=== PATIENT | female | born 1960 | race Caucasian/White ===

== ENCOUNTER 2020-09-18 12:02 | Outpatient (CLI) | payer BC, SELFPAY ==
[2020-09-18 12:31] LABS: Hematocrit 40.3 % (37.0-47.0); Hemoglobin 13.6 g/dL (12.0-15.0); Mean Corpuscular HGB Conc 33.7 g/dl (32-36); Mean Corpuscular Hemoglobin 33.3 pg (26-34); Mean Corpuscular Volume 98.5 fl (80-100); Mean Platelet Volume 10.4 fl (7.4-10.4); Platelet Count Result 237 k/mm3 (150-375); Red Blood Count 4.09 M/mm3 (4.2-5.4); Red Cell Distribution Width 12.3 % (11.5-14.5); White Blood Count 7.7 K/mm3 (4.5-10.0)
[2020-09-18 12:38] LABS: Rheumatoid Factor < 8.6 IU/ML (<12)
[2020-09-18 12:39] LABS: Alanine Aminotransferase 15 U/L (4-35); Albumin Level 4.6 g/dL (3.5-5.1); Alkaline Phosphatase 73 U/L (38-126); Anion Gap 9 mmol/L (8-16); Aspartate Amino Transferase 25 U/L (14-36); Bilirubin,Total 0.6 mg/dL (0.2-1.3); Blood Urea Nitrogen 34 mg/dL (7-17); CRP < 0.5 mg/dL (<1.0); Calcium 9.5 mg/dL (8.4-10.2); Carbon Dioxide 23 mmol/L (22-30); Chloride 109 mmol/L (98-107); Estimated Glomerular Filt Rate 35; Glucose 118 mg/dL (65-105); Sodium 141 mmol/L (137-145)
[2020-09-18 13:01] LABS: Erythrocyte Sedimentation Rate 14 mm/hr (0-20)
[2020-09-18 13:07] LABS: Thyroid Stimulating Hormone 0.807 uIU/mL (0.465-4.680)
== END 2020-09-18 12:03 | disposition home or self-care (01) ==
LOC: ANHLAB 12:04
PROVIDERS: PCP Family Medicine Adolescent Medicine; Visit Provider Family Medicine Adolescent Medicine
DX: R53.83 Other fatigue (principal); M25.50 Pain in unspecified joint
CPT/HCPCS: 36415; 80053; 84443; 85027; 85652; 86140; 86430

== ENCOUNTER 2020-10-22 13:43 | Outpatient (CLI) | payer BC, SELFPAY ==
--- NOTE | ~2020-10-22 | DEXA_ITS ---
Bone Density Report Name: Ruth Sauer Age: 60 Sex: Female Ethnicity: White Date of : 1960 Indication: postmenopausal; height loss; hysterectomy; Referring Provider: Nelia, Sirena Study: Bone densitometry was performed. Exam Date: October 22, 2020 Accession number: [id number] Bone Density: Region BMD T-score Z-score Classification AP Spine (L1-L4) 1.040 -0.1 1.4 Normal Femoral Neck (Left) 0.802 -0.4 0.9 Normal Total Hip (Left) 0.949 0.1 1.0 Normal Total Hip Bilateral Avg 0.954 0.1 1.1 Normal Femoral Neck (Right) 0.779 -0.6 0.7 Normal Total Hip (Right) 0.958 0.1 1.1 Normal World Health Organization criteria for BMD impression classify patients as: Normal (T-score at or above -1.0), Osteopenia (T-score between -1.0 and -2.5), or Osteoporosis (T-score at or below -2.5). 10-year Fracture Risk: FRAX not reported because: All T-scores for Spine Total, Hip Total, Femoral Neck at or above -1.0 Previous Exams: Region Exam Age BMD T-score BMD Change BMD Change Date g/cm2 vs Baseline vs Previous AP Spine(L1-L4) 10/22/2020 60 1.040 -0.1 -0.134(-11.4%) -0.037(-3.5%)* 08/18/2016 56 1.077 0.3 -0.096(-8.2%)# 0.000(0.0%)# 08/02/2013 53 1.077 0.3 -0.096(-8.2%)# -0.096(-8.2%)# 06/16/2010 50 1.173 1.1 Total Hip(Left) 10/22/2020 60 0.949 0.1 -0.065(-6.4%)# -0.060(-6.0%)* 08/18/2016 56 1.009 0.5 -0.005(-0.5%)# -0.031(-3.0%)# 08/02/2013 53 1.040 0.8 0.027(2.6%)# 0.027(2.6%)# 06/16/2010 50 1.014 0.6 Total Hip(Right) 10/22/2020 60 0.958 0.1 -0.078(-7.5%)# -0.050(-4.9%)* 08/18/2016 56 1.008 0.5 -0.028(-2.7%)# -0.015(-1.4%)# 08/02/2013 53 1.023 0.7 -0.013(-1.3%)# -0.013(-1.3%)# 06/16/2010 50 1.036 0.8 *Denotes significance at 95% confidence level, LSC for AP Spine = 0.022 g/cm2, LSC for Total Hip = 0.027 g/cm2 Clinical Information Provided by Patient: Smokes Has used the following medications: Vitamin D Has the following medical conditions: Hysterectomy Patient maximum height was 67 Menopause Age: 53 No regular weight bearing exercise Drinks caffeinated beverages Onset of menses at age 12 Number of children 5 Impression: The patient has normal bone mass. The patient has risk factors, including: smoking. The BMD for the AP Spine(L1-L4) decreased, changing by -3.5% since the last DXA exam. The BMD for the Total Hip(Left) decreased, changing by -6.0% since the last
--- NOTE | ~2020-10-22 | MM_ITS ---
EXAMINATION: MM screening linda BI w roshan HISTORY: Screening mammogram TECHNIQUE: Craniocaudal and mediolateral oblique 3-D tomosynthesis images were obtained and synthetic 2-D images were generated. CAD analysis was submitted and interpreted. COMPARISON: 09/08/2019, 08/31/2018, 08/25/2017 bilateral digital screening mammogram examinations BREAST PARENCHYMAL COMPOSITION: There are scattered areas of fibroglandular density. FINDINGS: There are scattered benign calcifications. There is no evidence of suspicious mass, calcifi cation, or architectural distortion to suggest malignancy in either breast. There has been no suspici ous interval change. IMPRESSION: 1. No mammographic evidence of malignancy. 2. Recommend routine screening mammography in one year. BI-RADS Category 2: Benign finding(s). Reviewed, dictated and finalized at location A. DRIVING SETTER
[2020-10-22 17:06] LABS: Vitamin D 25 Hydroxy 52.9 ng/mL
== END 2020-10-22 13:44 | disposition home or self-care (01) ==
PROVIDERS: PCP Family Medicine Adolescent Medicine; Visit Provider Nurse Practitioner
DX: Z12.31 Encounter for screening mammogram for malignant neoplasm of breast (principal); Z13.820 Encounter for screening for osteoporosis; E55.9 Vitamin D deficiency, unspecified
CPT/HCPCS: 36415; 77063; 77067; 77080; 82306

== ENCOUNTER 2021-07-01 12:56 | Outpatient (CLI) | payer BC, SELFPAY ==
[2021-07-01 14:03] LABS: Hematocrit 41.1 % (37.0-47.0); Hemoglobin 13.3 g/dL (12.0-15.0); Mean Corpuscular HGB Conc 32.4 g/dl (32-36); Mean Corpuscular Hemoglobin 31.9 pg (26-34); Mean Corpuscular Volume 98.6 fl (80-100); Mean Platelet Volume 10.5 fl (7.4-10.4); Platelet Count Result 255 k/mm3 (150-375); Red Blood Count 4.17 M/mm3 (4.2-5.4); Red Cell Distribution Width 12.1 % (11.5-14.5)
[2021-07-01 14:26] LABS: Alanine Aminotransferase 17 U/L (4-35); Albumin Level 4.7 g/dL (3.5-5.1); Alkaline Phosphatase 63 U/L (38-126); Anion Gap 8 mmol/L (8-16); Aspartate Amino Transferase 25 U/L (14-36); Bilirubin,Total 0.5 mg/dL (0.2-1.3); Blood Urea Nitrogen 35 mg/dL (7-17); Calcium 9.8 mg/dL (8.4-10.2); Carbon Dioxide 22 mmol/L (22-30); Chloride 112 mmol/L (98-107); Estimated Glomerular Filt Rate 31; Glucose 100 mg/dL (65-110); Potassium 4.9 mmol/L (3.4-5.0); Sodium 142 mmol/L (137-145)
== END 2021-07-01 12:57 | disposition home or self-care (01) ==
LOC: ANHLAB 13:00
PROVIDERS: PCP Family Medicine Adolescent Medicine; Visit Provider Family Medicine Adolescent Medicine
DX: R53.83 Other fatigue (principal)
CPT/HCPCS: 36415; 80053; 84443; 85027

== ENCOUNTER → 2021-11-05 03:42 | Outpatient (CLI) | payer BC, SELFPAY ==
[2021-11-08 20:42] LABS: SARS-CoV-2 RNA PCR Negative
== END ==
PROVIDERS: PCP Family Medicine Adolescent Medicine; Visit Provider Family Medicine Adolescent Medicine
DX: R53.83 Other fatigue (principal); R51.9 Headache, unspecified; Z20.822 Contact with and (suspected) exposure to COVID-19
CPT/HCPCS: C9803; U0003; U0005

== ENCOUNTER 2021-12-02 10:11 | Outpatient (CLI) | payer OTHER, SELFPAY ==
--- NOTE | ~2021-12-02 | MM_ITS ---
EXAMINATION: MM screening linda BI w roshan HISTORY: Screening TECHNIQUE: Craniocaudal and mediolateral oblique 3-D tomosynthesis images were obtained and synthetic 2-D images were generated. CAD analysis was submitted and interpreted. COMPARISON: Comparison to multiple prior studies sequentially, with oldest reviewed study dated 08/17. BREAST PARENCHYMAL COMPOSITION: The breasts are heterogenously dense, which may obscure small masses FINDINGS: Stable benign-appearing bilateral breast calcifications. There is no evidence of suspicious mass, calcification, or architectural distortion to suggest malignancy in either breast. There has b een no suspicious interval change. IMPRESSION: 1. No mammographic evidence of malignancy. 2. Recommend routine screening mammography in one year. BI-RADS Category 1: Negative Reviewed, dictated and finalized at location A. NESS SOLUTIONS ARCHITECT
[2021-12-02 11:58] LABS: Vitamin D 25 Hydroxy 47.9 ng/mL
== END 2021-12-02 10:12 | disposition home or self-care (01) ==
PROVIDERS: PCP Family Medicine Adolescent Medicine; Visit Provider Nurse Practitioner
DX: Z12.31 Encounter for screening mammogram for malignant neoplasm of breast (principal); E55.9 Vitamin D deficiency, unspecified
CPT/HCPCS: 36415; 77063; 77067; 82306

== ENCOUNTER 2022-05-14 09:05 | Emergency (ER) | payer OTHER, SELFPAY ==
--- NOTE | ~2022-05-14 | XR_ITS ---
EXAMINATION: XR knee RT min 4V DATE: 05/14/2022 09:38 INDICATION: Right knee pain TECHNIQUE: Four views of the right knee were obtained. COMPARISON: None. FINDINGS: Alignment is normal. No fracture or osteochondral lesion. There is mild tricompartmental os teoarthritis characterized by tiny marginal osteophytes. There is a small joint effusion. Soft tissue s are unremarkable. IMPRESSION: 1. Small knee joint effusion. Reviewed, dictated and finalized at location A.
[2022-05-14 09:07] VITALS: BP 180/97; PULSE 92; RESP 16; TEMP 36.4; O2SAT 99
--- NOTE | 2022-05-14 09:18 | ED.LOWEXIN ---
HPI - Extremity Injury (Lower) General Chief Complaint: Extremity Injury, Lower <Mariposa Gardner PA-C - Last Filed: 05/14/22 17:39> Stated Complaint: right knee injury <SAM Villalta Last Filed: 05/14/22 17:39> Time Seen by Provider: 05/14/22 09:12 <Mariposa Gardner PA-C - Last Filed: 05/14/22 17:39> Source: patient <SAM Villalta Last Filed: 05/14/22 17:39> Mode of arrival: ambulatory <SAM Villalta Last Filed: 05/14/22 17:39> Limitations: no limitations <SAM Villalta Last Filed: 05/14/22 17:39> History of Present Illness HPI Narrative: Patient is a 62-year-old female who presents the ED with report of right knee pain. Patient reports she stepped up her stairs last night with her right leg and felt as though her right knee hyperextended and bent backwards. She did not fall. No HI/LOC. She has had persistent pain in her posterior and anterior lateral right knee since then. Worse with flexion of right knee. She has a history of a right patellar dislocation several years ago, but denies any other knee problems. She took Tylenol last night for pain without relief. She has not taken anything for pain today. She has been able to ambulate, but has difficulty with this. Denies any numbness, tingling, weakness, fever, chills, redness or warmth around the knee joint. <Mariposa Gardner PA-C - Last Filed: 05/14/22 17:39> Related Data Home Medications: Home Medications Medication Instructions Recorded Confirmed oxybutynin chloride 5 mg tablet 1 tablet PO HS 05/14/22 05/14/22 <SAM Villalta Last Filed: 05/14/22 17:39> Allergies/Adverse Reactions: Allergies Allergy/AdvReac Type Severity Reaction Status Date / Time No Known Allergies Allergy Unverified 12/06/18 09:36 <SAM Villalta Last Filed: 05/14/22 17:39> Review of Systems Review of Systems: CONSTITUTIONAL: Denies fever, chills. SKIN: Denies redness/warmth to R knee. MUSCULOSKELETAL: Reports pain to posterior and lateral right knee. Denies back pain. NEUROLOGIC: Denies HI, LOC, tingling, numbness, or weakness. <Mariposa Gardner PA-C - Last Filed: 05/14/22 17:39> All systems reviewed & are unremarkable except as noted in HPI and below <Mariposa Gardner PA-C - Last Filed: 05/14/22 17:39> PMFSH Past Medical History Medical History: Medical History (Updated 05/14/22 @ 10:39 by Mariposa Gardner PA-C) GERD (gastroesophageal reflux disease) Hypertension <Mariposa Gardner PA-C - Last Filed: 05/14/22 17:39> Surgical History Surgical History: Surgical History (Updated 05/14/22 @ 09:47 by Mariposa Gardner PA-C) History of hysterectomy <Mariposa Gardner PA-C - Last Filed: 05/14/22 17:39> Family History Family History: Family History (Updated 02/24/17 @ 23:56 by DOCTOR UNKNOWN) Sibling Hypertension Family history of elevated blood lipids Father Family history of chronic obstructive pulmonary disease, Onset Age: 78 Patient's father is <Mariposa Gardner PA-C - Last Filed: 05/14/22 17:39> Social History Social History: Social History (Updated 05/14/22 @ 09:47 by Mariposa Gardner PA-C) Smoking status: Current every day smoker Alcohol intake: current <Mariposa Gardner PA-C - Last Filed: 05/14/22 17:39> Exam Narrative: GENERAL: Well appearing, well-nourished, non-toxic, in no acute distress. HEAD: Normocephalic, atraumatic. RESPIRATORY: Airway patent, respirations nonlabored. CARDIOVASCULAR: Regular rate and rhythm without murmurs, rubs, or gallops. Pedal pulses 2+ and equal bilaterally. MUSCULOSKELETAL: Moves all extremities. Strength intact without gross deformities. Swelling and TTP to anterior superior lateral R knee joint space. Significant TTP in R popliteal space. No bruising noted to anterior or posterior R knee. No palpable cysts in popliteal region. No calf tenderness. No warmth or erythema to R knee joint.
--- NOTE | 2022-05-14 09:18 | PC.NURSE ---
Xray at bedside
[2022-05-14] MEDS: KETOROLAC (*BKC) 60 MG/2 ML VIAL IM (09:49)
[2022-05-14 10:47] VITALS: PULSE 78; RESP 18; O2SAT 98
== END 2022-05-14 10:48 | disposition home or self-care (01) ==
PROVIDERS: Emergency Provider Emergency Medicine; PCP Family Medicine Adolescent Medicine
DX: S83.91XA Sprain of unspecified site of right knee, initial encounter (principal); I10 Essential (primary) hypertension; K21.9 Gastro-esophageal reflux disease without esophagitis; F17.200 Nicotine dependence, unspecified, uncomplicated; X50.9XXA Other and unspecified overexertion or strenuous movements or postures, initial encounter
CPT/HCPCS: 73564; 96372; 99283; J1885

== ENCOUNTER 2022-05-19 09:17 | Outpatient (CLI) | payer OTHER, SELFPAY ==
[2022-05-19 10:11] LABS: Basophils Absolute Auto 0.1 K/mm3 (0.0-0.1); Basophils Percent Auto 0.8 % (0.2-1.2); Eosinophils Absolute Auto 0.1 K/mm3 (0-0.3); Eosinophils Percent Auto 0.7 % (0-4.4); Hemoglobin 12.8 g/dL (12.0-15.0); Immature Granulocyte Absolute 0.02 K/mm3 (0.00-0.031); Immature Granulocyte Percent A 0.3 % (0-0.5); Lymphocytes Absolute Auto 1.57 K/mm3 (0.9-3.2); Lymphocytes Percent Auto 22.1 % (18.3-44.2); Mean Corpuscular HGB Conc 32.8 g/dl (32-36); Mean Corpuscular Hemoglobin 32.6 pg (26-34); Mean Corpuscular Volume 99.2 fl (80-100); Mean Platelet Volume 10.6 fl (7.4-10.4); Monocytes Absolute Auto 0.4 K/mm3 (0.1-0.6); Monocytes Percent Auto 4.9 % (2.6-8.5); Neutrophils Absolute Auto 5.1 K/mm3 (1.3-6.7); Neutrophils Percent Auto 71.2 % (45.5-73.1); Platelet Count Result 302 k/mm3 (150-375); Red Blood Count 3.93 M/mm3 (4.2-5.4); Red Cell Distribution Width 13.1 % (11.5-14.5); White Blood Count 7.1 K/mm3 (4.5-10.0)
[2022-05-19 10:32] LABS: CRP < 0.5 mg/dL (<1.0); Uric Acid 9.1 mg/dL (2.5-7.5)
[2022-05-19 10:35] LABS: Rheumatoid Factor < 8.6 IU/ML (<12)
[2022-05-19 11:06] LABS: Erythrocyte Sedimentation Rate 16 mm/hr (0-20)
== END 2022-05-19 09:18 | disposition home or self-care (01) ==
LOC: ANHLAB 09:19
PROVIDERS: PCP Family Medicine Adolescent Medicine; Visit Provider Orthopaedic Surgery
DX: M25.561 Pain in right knee (principal)
CPT/HCPCS: 36415; 84550; 85025; 85652; 86038; 86140; 86430

== ENCOUNTER 2022-05-30 12:39 | Outpatient (CLI) | payer OTHER, SELFPAY ==
--- NOTE | ~2022-05-30 | US_ITS ---
EXAMINATION: US knee asp inj w image RT DATE: 05/30/2022 13:46 INDICATION: Right knee pain. TECHNIQUE: The procedure including the risks, benefits, and alternatives was discussed with the patie nt. Risks discussed included bleeding and infection. The patient understood the risks and agreed to p roceed. The skin overlying the right knee was prepped and draped in usual sterile fashion. Anestheti c was administered with 1% lidocaine subcutaneously. An 18 gauge needle was inserted into the knee j oint under continuous sonographic guidance. Fluid was aspirated. The entry site was cleaned and dress ed. There were no immediate complications. FINDINGS: Ultrasound images demonstrate the needle in the right knee joint effusion. IMPRESSION: 1. Ultrasound-guided right knee joint aspiration yielding 15 mL of clear, blane-colored fluid. Reviewed, dictated and finalized at location A. IMPRESSION: 1. Ultrasound-guided right knee joint aspiration yielding 15 mL of clear, blane -colored fluid.
[2022-05-30 15:11] LABS: Crystals Synovial Fluid None Seen (None Seen)
[2022-05-30 15:29] LABS: Appearance Synovial Fluid Clear (Clear); Color Synovial Fluid Yellow (Colorless); Source Synovial Fluid Synovial fluid
[2022-05-30 15:30] LABS: Lymphocytes Synovial Fluid 6 %; Macrophages Synovial Fluid 88 %; Monocytes Synovial Fluid 2 %; Neutrophils Synovial Fluid 4 % (0-25)
== END 2022-05-30 12:40 | disposition home or self-care (01) ==
PROVIDERS: PCP Family Medicine Adolescent Medicine; Visit Provider Nurse Practitioner
DX: M25.461 Effusion, right knee (principal)
CPT/HCPCS: 20611; 87070; 87075; 87205; 89051; 89060

== ENCOUNTER → 2022-06-06 08:18 | Outpatient (CLI) | payer OTHER, SELFPAY ==
--- NOTE | ~2022-06-06 | MR_ITS ---
EXAMINATION: MR knee RT wo con DATE: 06/06/2022 09:00 INDICATION: Right knee pain TECHNIQUE: Magnetic resonance imaging (MRI) of the right knee was performed without intravenous contr ast. Sequences included coronal PD-weighted FSE, coronal PD-weighted FS FSE, sagittal T2-weighted FS E, sagittal PD-weighted FS FSE and axial PD weighted fat saturated FSE. COMPARISON: None. FINDINGS: Medial compartment: Medial extrusion of the medial meniscal body with radial tear near the posterior root. Scattered naomi dral ulceration along the anterior to posterior weightbearing medial femoral condyle, in places parti ally full/near full-thickness with underlying subarticular edema-like signal change at the anterior w eightbearing medial femoral condyle. There appears to be some deep chondral delamination with linear increased signal at or near the bone chondral interface at the posterior weightbearing medial femoral condyle. Additional partial thickness chondral ulceration at the medial tibial plateau with anterome dial predominance where there is additional small amount of subarticular edema-like signal change robyn ng the medial rim of the medial tibial plateau. Lateral compartment: Lateral meniscus is normal. Small region of deep chondral fissuring without degenerative subchondral changes at the anterior to central weightbearing lateral femoral condyle. Normal cartilage along the lateral tibial plateau. Patellofemoral compartment: Deep chondral ulceration without degenerative subchondral changes at the lateral aspect of the medial patellar facet and apical ridge. Deep chondral ulceration with mild underlying cortical irregularity and minimal edema-like signal change at the inferior aspect of the medial trochlea. Additional shall ow chondral ulceration at the superomedial aspect of the lateral trochlea. Ligaments and tendons: Anterior and posterior cruciate ligaments are normal. The medial collateral ligament and fibular yvette ateral ligament complex are normal. The extensor mechanism is normal. The visualized medial and later al hamstring tendons as well as the iliotibial band are normal. Fluid: Small joint effusion at the suprapatellar pouch of the right knee. No loose osteochondral bodies iden tified. Osseous/other: Normal marrow signal separate previous noted small regions of subarticular edema-like signal change. No fracture or pathologic marrow replacing process. Mild fatty atrophy of the distal semimembranosus muscle belly. IMPRESSION: 1. Radial tear near the posterior root of the medial meniscus. 2. Mild tricompartmental osteoarthritis with regions of high-grade chondromalacia in the medial and p atellofemoral compartment and moderate grade chondromalacia in the lateral compartment. Reviewed, dictated and finalized at location A. IMPRESSION: 1. Radial tear near the posterior root of the medial meniscus. 2. Mild tricompartmental osteoarthritis with regions of high-grade chondromalac ia in the medial and patellofemoral compartment and moderate grade chondromalac ia in the lateral compartment.
== END ==
PROVIDERS: PCP Family Medicine Adolescent Medicine; Visit Provider Nurse Practitioner
DX: M25.561 Pain in right knee (principal); S83.241A Other tear of medial meniscus, current injury, right knee, initial encounter; M17.11 Unilateral primary osteoarthritis, right knee; M94.261 Chondromalacia, right knee
CPT/HCPCS: 73721

== ENCOUNTER 2022-09-16 12:36 | Outpatient (CLI) | payer OTHER, SELFPAY ==
[2022-09-16 14:00] LABS: Thyroid Stimulating Hormone 0.247 uIU/mL (0.465-4.680)
[2022-09-16 15:39] LABS: Free T4 Free Thyroxine 0.99 ng/mL (0.78-2.19); Vitamin D 25 Hydroxy 37.4 ng/mL
[2022-09-21 05:05] LABS: Testosterone Free 1.8 pg/mL (0.2-5.0)
== END 2022-09-16 12:37 | disposition home or self-care (01) ==
LOC: ANHLAB 12:39
PROVIDERS: PCP Family Medicine Adolescent Medicine; Visit Provider Nurse Practitioner
DX: E55.9 Vitamin D deficiency, unspecified (principal); L64.9 Androgenic alopecia, unspecified
CPT/HCPCS: 36415; 82306; 82607; 84402; 84439; 84443

== ENCOUNTER 2022-11-18 13:16 | Outpatient (CLI) | payer OTHER, SELFPAY ==
[2022-11-18 13:58] LABS: Anion Gap 11 mmol/L (8-16); Blood Urea Nitrogen 36 mg/dL (7-17); Calcium 9.5 mg/dL (8.4-10.2); Carbon Dioxide 20 mmol/L (22-30); Chloride 110 mmol/L (98-107); Estimated Glomerular Filt Rate 25; Glucose 130 mg/dL (65-110); Potassium 4.7 mmol/L (3.4-5.0); Sodium 141 mmol/L (137-145)
== END 2022-11-18 13:17 | disposition home or self-care (01) ==
LOC: ANHLAB 13:17
PROVIDERS: PCP Family Medicine Adolescent Medicine; Visit Provider Family Medicine Adolescent Medicine
DX: I10 Essential (primary) hypertension (principal)
CPT/HCPCS: 36415; 80048

== ENCOUNTER 2022-12-22 09:53 | Outpatient (CLI) | payer OTHER, SELFPAY ==
[2022-12-22 10:46] LABS: Chloride 113 mmol/L (98-107)
[2022-12-22 10:54] LABS: Complement C3 100 mg/dL (88-165)
[2022-12-22 10:59] LABS: Albumin Level 4.4 g/dL (3.5-5.1); Anion Gap 8 mmol/L (8-16); Blood Urea Nitrogen 43 mg/dL (7-17); Calcium 9.4 mg/dL (8.4-10.2); Carbon Dioxide 20 mmol/L (22-30); Estimated Glomerular Filt Rate 24; Glucose 127 mg/dL (65-110); Phosphorus 4.3 mg/dL (2.5-4.5); Potassium 5.4 mmol/L (3.4-5.0); Sodium 141 mmol/L (137-145)
[2022-12-22 12:04] LABS: Creatinine Urine 202.2 mg/dL; Total Protein Urine Random 9 mg/dL; Ur Ttl Prot Creatinine Ratio 0.04 mg/mg (0-0.20)
[2022-12-22 12:21] LABS: Eosinophil Urine Rare % (None Seen)
[2022-12-24 20:12] LABS: Albumin 4.4 g/dL (3.8-4.8); Alpha 1 Globulin 0.3 g/dL (0.2-0.3); Alpha 2 Globulin 0.8 g/dL (0.5-0.9); Beta 1 Globulin 0.5 g/dL (0.4-0.6); Gamma Globulin 0.8 g/dL (0.8-1.7); Protein, Total 7.1 g/dL (6.1-8.1)
[2022-12-26 11:29] LABS: Anti Glomerular Basement Memb <1.0 AI (<1.0)
[2022-12-27 21:29] LABS: Creatinine, Random Urine 174 mg/dL (20-275); Total Protein/Creatinine Ratio 138 mg/g creat (24-184)
[2022-12-29 02:08] LABS: ANCA Screen Negative (Negative)
== END 2022-12-22 09:54 | disposition home or self-care (01) ==
PROVIDERS: PCP Family Medicine Adolescent Medicine; Visit Provider Internal Medicine Nephrology
DX: N18.4 Chronic kidney disease, stage 4 (severe) (principal)
CPT/HCPCS: 36415; 80069; 82570; 83520; 84155; 84156; 84165; 84166; 85999; 86036; 86038; 86160; 86225

== ENCOUNTER 2022-12-30 13:07 | Outpatient (CLI) | payer OTHER, SELFPAY ==
--- NOTE | ~2022-12-30 | US_ITS ---
EXAMINATION: US renal BI DATE: 12/30/2022 13:50 INDICATION: Chronic kidney disease, stage IV. TECHNIQUE: Multiple ultrasound grayscale images of the kidneys were obtained. COMPARISON: None. FINDINGS: The right kidney measures 8.5 x 3.5 x 3.1 cm. The left kidney measures 8.5 x 5.7 x 3.6 cm. The kidney s demonstrate normal parenchymal echogenicity. There is no hydronephrosis. The bladder is normal. IMPRESSION: 1. Mild atrophy of the kidneys. No hydronephrosis. Reviewed, dictated and finalized at location A. RIOR DESIGN PROFESSOR
== END 2022-12-30 13:08 | disposition home or self-care (01) ==
PROVIDERS: PCP Family Medicine Adolescent Medicine; Visit Provider Internal Medicine Nephrology
DX: N18.4 Chronic kidney disease, stage 4 (severe) (principal); N26.1 Atrophy of kidney (terminal)
CPT/HCPCS: 76775

== ENCOUNTER 2023-02-02 14:30 | Outpatient (CLI) | payer OTHER, SELFPAY ==
--- NOTE | ~2023-02-02 | MM_ITS ---
EXAMINATION: MM screening linda BI w roshan HISTORY: Screening mammogram TECHNIQUE: Craniocaudal and mediolateral oblique 3-D tomosynthesis images were obtained and synthetic 2-D images were generated. CAD analysis was submitted and interpreted. COMPARISON: 12/02/2021, 10/22/2020, 09/08/2019 bilateral screening mammogram examinations BREAST PARENCHYMAL COMPOSITION: There are scattered areas of fibroglandular density. FINDINGS: There is no evidence of suspicious mass, calcification, or architectural distortion to sugg est malignancy in either breast. There has been no suspicious interval change. IMPRESSION: 1. No mammographic evidence of malignancy. 2. Recommend routine screening mammography in one year. BI-RADS Category 1: Negative Reviewed, dictated and finalized at location A.
== END 2023-02-02 14:31 | disposition home or self-care (01) ==
PROVIDERS: PCP Family Medicine Adolescent Medicine; Visit Provider Nurse Practitioner
DX: Z12.31 Encounter for screening mammogram for malignant neoplasm of breast (principal)
CPT/HCPCS: 77063; 77067

== ENCOUNTER 2023-06-02 14:37 | Outpatient (CLI) | payer OTHER, SELFPAY ==
[2023-06-02 13:13] LABS: Thyroid Stimulating Hormone 0.661 uIU/mL (0.465-4.680)
[2023-06-02 13:47] LABS: Free T4 Free Thyroxine 1.19 ng/mL (0.78-2.19); Vitamin D 25 Hydroxy 52.4 ng/mL
== END 2023-06-02 14:38 | disposition home or self-care (01) ==
PROVIDERS: PCP Family Medicine Adolescent Medicine; Referring Provider Nurse Practitioner Family; Visit Provider Obstetrics & Gynecology Gynecology
DX: E05.90 Thyrotoxicosis, unspecified without thyrotoxic crisis or storm (principal); E53.8 Deficiency of other specified B group vitamins; E55.9 Vitamin D deficiency, unspecified; R19.7 Diarrhea, unspecified
CPT/HCPCS: 36415; 82306; 82607; 84439; 84443; 87045; 87177; 87209; 87269; 87427

== ENCOUNTER 2023-06-15 08:58 | Outpatient (CLI) | payer OTHER, SELFPAY ==
[2023-06-15 09:55] LABS: Basophils Absolute Auto 0.1 K/mm3 (0.0-0.1); Basophils Percent Auto 0.7 % (0.2-1.2); Eosinophils Absolute Auto 0.1 K/mm3 (0-0.3); Hematocrit 38.2 % (37.0-47.0); Hemoglobin 12.3 g/dL (12.0-15.0); Immature Granulocyte Absolute 0.02 K/mm3 (0.00-0.031); Immature Granulocyte Percent A 0.3 % (0-0.5); Lymphocytes Absolute Auto 1.74 K/mm3 (0.9-3.2); Lymphocytes Percent Auto 24.4 % (18.3-44.2); Mean Corpuscular HGB Conc 32.2 g/dl (32-36); Mean Corpuscular Hemoglobin 32.7 pg (26-34); Mean Corpuscular Volume 101.6 fl (80-100); Mean Platelet Volume 10.5 fl (7.4-10.4); Monocytes Absolute Auto 0.5 K/mm3 (0.1-0.6); Monocytes Percent Auto 7.4 % (2.6-8.5); Neutrophils Absolute Auto 4.7 K/mm3 (1.3-6.7); Neutrophils Percent Auto 66.2 % (45.5-73.1); Platelet Count Result 224 k/mm3 (150-375); Red Blood Count 3.76 M/mm3 (4.2-5.4); Red Cell Distribution Width 12.8 % (11.5-14.5); White Blood Count 7.1 K/mm3 (4.5-10.0)
[2023-06-15 10:17] LABS: Alanine Aminotransferase 15 U/L (6-35); Albumin Level 4.4 g/dL (3.5-5.1); Alkaline Phosphatase 72 U/L (38-126); Anion Gap 9 mmol/L (8-16); Aspartate Amino Transferase 21 U/L (14-36); Bilirubin,Total 0.7 mg/dL (0.2-1.3); Blood Urea Nitrogen 27 mg/dL (7-17); Calcium 9.4 mg/dL (8.4-10.2); Carbon Dioxide 21 mmol/L (22-30); Chloride 109 mmol/L (98-107); Estimated Glomerular Filt Rate 28; Glucose 102 mg/dL (65-110); Potassium 4.4 mmol/L (3.4-5.0); Sodium 139 mmol/L (137-145)
== END 2023-06-15 08:59 | disposition home or self-care (01) ==
PROVIDERS: PCP Family Medicine Adolescent Medicine; Visit Provider Nurse Practitioner Family
DX: R19.7 Diarrhea, unspecified (principal)
CPT/HCPCS: 36415; 80053; 84443; 85025

== ENCOUNTER 2023-07-06 14:16 | Outpatient (CLI) | payer OTHER, SELFPAY ==
[2023-07-06 14:47] LABS: Albumin Level 4.4 g/dL (3.5-5.1); Anion Gap 12 mmol/L (8-16); Blood Urea Nitrogen 42 mg/dL (7-17); Calcium 9.4 mg/dL (8.4-10.2); Carbon Dioxide 17 mmol/L (22-30); Chloride 111 mmol/L (98-107); Estimated Glomerular Filt Rate 25; Glucose 119 mg/dL (65-110); Phosphorus 3.8 mg/dL (2.5-4.5); Potassium 4.6 mmol/L (3.4-5.0); Sodium 140 mmol/L (137-145)
[2023-07-06 17:57] LABS: Parathyroid Intact 121.9 pg/mL (7.5-53.5)
[2023-07-06 18:01] LABS: Vitamin D 25 Hydroxy 57.3 ng/mL
[2023-07-06 18:48] LABS: Creatinine Urine 278.7 mg/dL
[2023-07-06 18:53] LABS: Total Protein Urine Random < 5 mg/dL
[2023-07-06 18:54] LABS: Ur Ttl Prot Creatinine Ratio < 0.02 mg/mg (0-0.20)
== END 2023-07-06 14:17 | disposition home or self-care (01) ==
LOC: ANHLAB 14:17
PROVIDERS: PCP Family Medicine Adolescent Medicine; Visit Provider Internal Medicine Nephrology
DX: N18.4 Chronic kidney disease, stage 4 (severe) (principal); E11.22 Type 2 diabetes mellitus with diabetic chronic kidney disease; I12.9 Hypertensive chronic kidney disease with stage 1 through stage 4 chronic kidney disease, or unspecified chronic kidney disease; N25.81 Secondary hyperparathyroidism of renal origin; E55.9 Vitamin D deficiency, unspecified
CPT/HCPCS: 36415; 80069; 82306; 82570; 83970; 84156

== ENCOUNTER 2023-07-27 11:03 | Outpatient (CLI) | payer OTHER, SELFPAY ==
[2023-07-31 02:09] LABS: Immunoglobulin A 262 mg/dL (70-320); TTG IGA AB <1.0 U/mL (<15.0)
== END 2023-07-27 11:04 | disposition home or self-care (01) ==
LOC: ANHLAB 11:04
PROVIDERS: PCP Family Medicine Adolescent Medicine; Visit Provider Nurse Practitioner Family
DX: R19.7 Diarrhea, unspecified (principal)
CPT/HCPCS: 36415; 82784; 86364

== ENCOUNTER 2023-09-01 01:13 | Day surgery (SDC) | payer OTHER, SELFPAY ==
[2023-08-24 09:31] VITALS: BMI 27.8
[2023-09-01 08:57] VITALS: BMI 28.4
[2023-09-01 08:59] VITALS: BP 194/90; PULSE 82; RESP 20; TEMP 35.8; O2SAT 100
[2023-09-01] MEDS: LACTATED RINGERS 1,000 ML 150 ML IV CONT (09:07)
--- NOTE | 2023-09-01 09:49 | WPDANESEPPF ---
Anes - Initial Pre Proc Eval Procedure: Operation Date: 09/01/23 10:00 Proposed Procedures p Colonoscopy - Jone Kearney MD Date/Time: 09/01/23 09:49 Surgeon: Jone Kearney MD Pre Op Diagnosis: diarrhea Patient Data Age: 63 Gender: F Height: 1.68 m Weight: 79.9 kg Last Vital Signs Temp 96.4 F L 09/01/23 08:59 Pulse 82 09/01/23 08:59 Resp 20 09/01/23 08:59 BP 194/90 H 09/01/23 08:59 Pulse Ox 100 09/01/23 08:59 O2 Del Method Room Air 09/01/23 08:59 Allergies Allergy/AdvReac Type Severity Reaction Status Date / Time cat dander Allergy Unknown Verified 09/01/23 08:56 Home Medications Medication Instructions Recorded Confirmed Type pantoprazole 40 mg tablet,delayed 40 mg PO QAM #90 tabs 10/24/22 09/01/23 Rx release hydrochlorothiazide 12.5 mg tablet 12.5 mg PO DAILY 07/13/23 09/01/23 History lisinopril 30 mg tablet 30 mg PO DAILY #90 tabs 07/13/23 09/01/23 Rx dicyclomine 20 mg tablet 20 mg PO QID #30 tabs 07/27/23 09/01/23 Rx Patient hx anesthesia problems: none Family hx anesthesia problems: none Results Review: All pre-operative results and documents have been reviewed as part of the pre-operative evaluation. [facility] Past Medical History Medical History Arthritis of knee, right Diabetes GERD (gastroesophageal reflux disease) Hypertension Tobacco abuse Surgical History Surgical History History of hysterectomy 1989 Family History Family History Sibling Hypertension Family history of elevated blood lipids Father Family history of chronic obstructive pulmonary disease, Onset Age: 78 Patient's father is Hypertension Grandparent Diabetes mellitus Other Cancer Social History Social History Smoking packs per day: 0.5 Smoking cigarettes per day: 10.0 Years smoked: 40 Smoking pack-years: 20.00 Smoking status: Current every day smoker Tobacco type: cigarettes Second hand tobacco smoke exposure: Yes Alcohol intake: current Drinks per week: 6 Alcohol use details: Socially Substance use: never Substance use type: does not use Lack of Transportation: No Lack of Food: Never True Current Housing: I Have Housing Concerned About Future Housing: No Difficulty Paying Gas/Electric Bills: No Difficulty Paying for Meds: No Currently Unemployed: No Education: Associate Degree Difficulty w/ Childcare or Family Care: No Living arrangements: with family Occupation/Education: occupation 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 Informed Consent: The patient's anesthetic plan and its attendant risks and benefits were discussed with the patient/family/POA. Questions were solicited and answers provided to the satisfaction of the patient/family/POA.
--- NOTE | 2023-09-01 09:52 | WPDHPUPDATE1 ---
History and Physical Update Update Date/Time: 09/01/23 09:52 History and Physical has been reviewed, including an updated exam of the patient. There are NO changes in the patient's condition. Risks, benefits, and alternatives have been discussed and questions answered. Patient agrees to proceed with procedure.
[2023-09-01 10:16] VITALS: BP 140/85; PULSE 70; RESP 20; O2SAT 100
[2023-09-01 10:26] VITALS: BP 144/83; PULSE 65; RESP 24; O2SAT 100
[2023-09-01 10:36] VITALS: BP 150/84; PULSE 65; RESP 24; O2SAT 100
--- NOTE | 2023-09-05 07:52 | PM.HPGS ---
History of Present Illness History of Present Illness Consent: Risks, benefits, and alternatives have been discussed and questions answered. Patient agrees to proceed with procedure. Chief complaint: diarrhea Narrative: Ruth Sauer is a 63 year old female with diarrhea for over 2 months Review of Systems Constitutional: Constitutional: Denies headache(s) and Denies weakness Eyes: Eyes: Denies blurry vision ENT: Reports Normal hearing present, Denies headache(s) and Denies neck pain Cardiovascular: Cardiovascular: Denies chest pain and Denies dyspnea Respiratory: Respiratory: Denies dyspnea Gastrointestinal: Gastrointestinal: Reports no additional gastrointestinal complaints Genitourinary: Genitourinary: Denies dysuria Musculoskeletal: Musculoskeletal: Denies neck pain Integumentary/Breasts: Skin/Breast: Denies dry skin Neurologic: Reports Normal hearing present, Denies headache(s) and Denies weakness Psychiatric: Psychiatric: Denies anxiety Endocrine: Endocrine: Denies change in body appearance Hematologic/Lymphatic: Hematologic/Lymphatic: Denies easy bleeding Allergic/Immunologic: Allergic/Immunologic: Denies urticaria PMFSH Past Medical History Medical History Arthritis of knee, right Diabetes GERD (gastroesophageal reflux disease) Hypertension Tobacco abuse Surgical History Surgical History History of hysterectomy 1989 Family History Family History Sibling Hypertension Family history of elevated blood lipids Father Family history of chronic obstructive pulmonary disease, Onset Age: 78 Patient's father is Hypertension Grandparent Diabetes mellitus Other Cancer Social History Social History Smoking packs per day: 0.5 Smoking cigarettes per day: 10.0 Years smoked: 40 Smoking pack-years: 20.00 Smoking status: Current every day smoker Tobacco type: cigarettes Second hand tobacco smoke exposure: Yes Alcohol intake: current Drinks per week: 6 Alcohol use details: Socially Substance use: never Substance use type: does not use Lack of Transportation: No Lack of Food: Never True Current Housing: I Have Housing Concerned About Future Housing: No Difficulty Paying Gas/Electric Bills: No Difficulty Paying for Meds: No Currently Unemployed: No Education: Associate Degree Difficulty w/ Childcare or Family Care: No Living arrangements: with family Occupation/Education: occupation 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 Gender identity (if verbalized by the patient): Female Spiritual care concerns: No Meds Home Medications and Allergies Home Medications Medication Instructions Recorded Confirmed Type pantoprazole 40 mg tablet,delayed 40 mg PO QAM #90 tabs 10/24/22 09/01/23 Rx release hydrochlorothiazide 12.5 mg tablet 12.5 mg PO DAILY 07/13/23 09/01/23 History lisinopril 30 mg tablet 30 mg PO DAILY #90 tabs 07/13/23 09/01/23 Rx dicyclomine 20 mg tablet 20 mg PO QID #30 tabs 07/27/23 09/01/23 Rx Allergies Allergy/AdvReac Type Severity Reaction Status Date / Time cat dander Allergy Unknown Verified 09/01/23 08:56 Exam Const: General: comfortable and no acute distress HENMT: Face/Nose/Sinus: Normal nares present Eyes: General: appearance normal, both eyes and all related structures Neck: Neck: no JVD Resp: Auscultation: clear to auscultation bilaterally Cardio: Rate: regular rate Rhythm: regular rhythm GI: Inspection: non-distended GI Palp: Yes Soft to palpation Skin: General skin exam: normal color Neuro: General: gait normal Speech: normal speech Extrem: General: normal to inspection Psych: Mental Status: mental status grossly no
== END 2023-09-01 10:38 | disposition home or self-care (01) ==
PROVIDERS: PCP Family Medicine Adolescent Medicine; Visit Provider Internal Medicine Gastroenterology
PROC: 0DJD8ZZ Inspection of Lower Intestinal Tract, Via Natural or Artificial Opening Endoscopic (ICD-10-PCS; CPT 45378; principal; 2023-09-01 10:00)
DX: Z12.11 Encounter for screening for malignant neoplasm of colon (principal); K57.30 Diverticulosis of large intestine without perforation or abscess without bleeding; R19.7 Diarrhea, unspecified; I10 Essential (primary) hypertension; E11.9 Type 2 diabetes mellitus without complications; K21.9 Gastro-esophageal reflux disease without esophagitis; F17.210 Nicotine dependence, cigarettes, uncomplicated
CPT/HCPCS: 45380; 88305; J2704; J7120

== ENCOUNTER 2023-09-22 14:19 | Outpatient (CLI) | payer OTHER, SELFPAY ==
[2023-09-22 13:30] LABS: Alanine Aminotransferase 13 U/L (6-35); Albumin Level 4.4 g/dL (3.5-5.1); Alkaline Phosphatase 52 U/L (38-126); Anion Gap 7 mmol/L (8-16); Aspartate Amino Transferase 20 U/L (14-36); Bilirubin,Total 0.5 mg/dL (0.2-1.3); Blood Urea Nitrogen 47 mg/dL (7-17); Calcium 9.2 mg/dL (8.4-10.2); Carbon Dioxide 21 mmol/L (22-30); Chloride 114 mmol/L (98-107); Estimated Glomerular Filt Rate 25; Glucose 88 mg/dL (65-110); Potassium 5.3 mmol/L (3.4-5.0); Sodium 142 mmol/L (137-145)
[2023-09-22 13:50] LABS: Vitamin D 25 Hydroxy 56.8 ng/mL
[2023-09-22 13:59] LABS: Thyroid Stimulating Hormone 0.355 uIU/mL (0.465-4.680)
[2023-09-22 14:44] LABS: Hematocrit 39.2 % (37.0-47.0); Hemoglobin 12.5 g/dL (12.0-15.0); Mean Corpuscular HGB Conc 31.9 g/dl (32-36); Mean Corpuscular Hemoglobin 32.1 pg (26-34); Mean Corpuscular Volume 100.5 fl (80-100); Mean Platelet Volume 10.9 fl (7.4-10.4); Platelet Count Result 236 k/mm3 (150-375); Red Cell Distribution Width 12.1 % (11.5-14.5); White Blood Count 5.8 K/mm3 (4.5-10.0)
[2023-09-29 03:21] LABS: Pancreatic Elastase, Stool >500 mcg/g
== END 2023-09-22 14:20 | disposition home or self-care (01) ==
PROVIDERS: PCP Family Medicine Adolescent Medicine; Referring Provider Nurse Practitioner; Visit Provider Nurse Practitioner Family
DX: R19.7 Diarrhea, unspecified (principal); E55.9 Vitamin D deficiency, unspecified
CPT/HCPCS: 36415; 80053; 82306; 82653; 84443; 85027

== ENCOUNTER 2023-10-04 09:00 | Outpatient (CLI) | payer OTHER, SELFPAY ==
--- NOTE | ~2023-10-04 | NM_ITS ---
EXAMINATION: NM hepatobiliary wo pharm DATE: 10/04/2023 11:42 INDICATION: Right upper quadrant abdominal pain. COMPARISON: Ultrasound 10/04/2023 TECHNIQUE: 5.2 mCi Tc-99m mebrofenin (Choletec) was administered intravenously. Scintigraphic images of the abdomen were obtained for one hour. Then, the patient drank 8 oz Ensure, and imaging was cont inued for 60 minutes. FINDINGS: There is normal clearance of radiotracer from the blood pool. There is homogeneous tracer u ptake by the liver. Activity progresses to the bowel and gallbladder. Gallbladder ejection fraction (GBEF) was 83%. Note that with this technique, normal GBEF >= 33%. IMPRESSION: 1. Normal hepatobiliary scintigraphy. Reviewed, dictated and finalized at location A. ITY PERSON
--- NOTE | ~2023-10-04 | US_ITS ---
Limited Abdominal Sonogram: Real-time sonographic imaging of the right upper quadrant was performed. Clinical History: Right upper quadrant pain Findings: The liver appears normal with no evidence of mass lesion or bile duct dilatation. Main por vianney vein demonstrates normal direction of flow. The gallbladder is partially distended, probable mult iple small gallbladder wall polyps. The common bile duct measures 5 mm. The visualized pancreas, aor ta, and IVC are unremarkable. Impression: Multiple probable subcentimeter gallbladder wall polyps. Reviewed, dictated and finalized at location M. RIFUGAL SPINNER Impression: Multiple probable subcentimeter gallbladder wall polyps.
== END 2023-10-04 09:01 | disposition home or self-care (01) ==
LOC: ANHIMG 09:04
PROVIDERS: PCP Family Medicine Adolescent Medicine; Visit Provider Nurse Practitioner Family
DX: R10.11 Right upper quadrant pain (principal); R19.7 Diarrhea, unspecified
CPT/HCPCS: 76705; 78226; A9537

== ENCOUNTER 2023-11-02 15:28 | Outpatient (CLI) | payer OTHER, SELFPAY ==
[2023-11-02 15:55] LABS: Creatinine Urine 79.9 mg/dL; Total Protein Urine Random 8 mg/dL
[2023-11-02 15:59] LABS: Albumin Level 4.3 g/dL (3.5-5.1); Anion Gap 9 mmol/L (8-16); Blood Urea Nitrogen 41 mg/dL (7-17); Calcium 9.2 mg/dL (8.4-10.2); Carbon Dioxide 21 mmol/L (22-30); Chloride 111 mmol/L (98-107); Estimated Glomerular Filt Rate 23; Glucose 103 mg/dL (65-110); Phosphorus 3.7 mg/dL (2.5-4.5); Potassium 4.7 mmol/L (3.4-5.0); Sodium 141 mmol/L (137-145)
== END 2023-11-02 15:29 | disposition home or self-care (01) ==
LOC: ANHLAB 15:29
PROVIDERS: PCP Family Medicine Adolescent Medicine; Visit Provider Internal Medicine Nephrology
DX: E11.22 Type 2 diabetes mellitus with diabetic chronic kidney disease (principal); I12.9 Hypertensive chronic kidney disease with stage 1 through stage 4 chronic kidney disease, or unspecified chronic kidney disease; N18.4 Chronic kidney disease, stage 4 (severe)
CPT/HCPCS: 36415; 80069; 82570; 84156

== ENCOUNTER 2023-11-10 02:16 | Day surgery (SDC) | payer OTHER, SELFPAY ==
[2023-10-26 11:18] VITALS: BMI 28.4
--- NOTE | 2023-11-08 09:25 | SUR.PREOP ---
Patient called regarding upcoming procedure. Reviewed preop instructions, appointment times, and procedure prep.
--- NOTE | 2023-11-09 09:59 | WPDANESEPPF ---
Anes - Initial Pre Proc Eval Procedure: Operation Date: 11/10/23 13:00 Proposed Procedures p Esophagogastroduodenoscopy - Jone Kearney MD Date/Time: 11/09/23 09:59 Surgeon: Jone Kearney MD Pre Op Diagnosis: right upper quadrant pain, diarrhea unspecified Patient Data Age: 63 Gender: F Height: 1.68 m Weight: 80 kg Allergies Allergy/AdvReac Type Severity Reaction Status Date / Time cat dander Allergy Unknown Verified 11/10/23 11:32 Home Medications Medication Instructions Recorded Confirmed Type lisinopril 30 mg tablet 30 mg PO DAILY #90 tabs 07/13/23 11/10/23 Rx hydrochlorothiazide 12.5 mg capsule See Rx Instructions .Route 09/05/23 11/10/23 Rx .COMPLEX #90 caps pantoprazole 40 mg tablet,delayed See Rx Instructions .Route 09/12/23 11/10/23 Rx release .COMPLEX #90 tabs amitriptyline 25 mg tablet 25 mg PO QHS 1 month #30 tabs 09/21/23 11/10/23 Rx dicyclomine 20 mg tablet See Rx Instructions .Route 10/02/23 11/10/23 Rx .COMPLEX #30 tabs Patient hx anesthesia problems: none Family hx anesthesia problems: none Results Review: All pre-operative results and documents have been reviewed as part of the pre-operative evaluation. [facility] Past Medical History Medical History Arthritis of knee, right Diabetes Gallbladder polyp GERD (gastroesophageal reflux disease) Hypertension Right upper quadrant pain Tobacco abuse Surgical History Surgical History History of exploratory laparotomy History of hysterectomy 1989 - partial hysterectomy with vaginal approach. Family History Family History Sibling Hypertension Family history of elevated blood lipids Father Family history of chronic obstructive pulmonary disease, Onset Age: 78 Patient's father is Hypertension Grandparent Diabetes mellitus Other Cancer Social History Social History Smoking packs per day: 0.5 Smoking cigarettes per day: 10.0 Years smoked: 35 Smoking pack-years: 17.50 Smoking status: Current every day smoker Tobacco type: cigarettes Second hand tobacco smoke exposure: Yes Alcohol intake: current Drinks per week: 5 Alcohol use details: Socially Substance use: never Substance use type: does not use Lack of Transportation: No Lack of Food: Never True Current Housing: I Have Housing Concerned About Future Housing: No Difficulty Paying Gas/Electric Bills: No Difficulty Paying for Meds: No Currently Unemployed: No Education: Associate Degree Difficulty w/ Childcare or Family Care: No Living arrangements: with family Occupation/Education: occupation 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 Informed Consent: The patient's anesthetic plan and its attendant risks and benefits were discussed with the patient/family/POA. Questions were solicited and answers provided to the satisfaction of the patient/family/POA.
[2023-11-10 11:34] VITALS: BP 169/82; PULSE 84; RESP 16; TEMP 35.8; O2SAT 100
[2023-11-10] MEDS: LACTATED RINGERS 1,000 ML 150 ML IV CONT (11:42)
--- NOTE | 2023-11-10 11:51 | PM.HPGS ---
History of Present Illness History of Present Illness Consent: Risks, benefits, and alternatives have been discussed and questions answered. Patient agrees to proceed with procedure. Chief complaint: right upper quadrant pain, diarrhea unspecified Narrative: Ruth Sauer is a 63 year old female with abdominal pain and diarrhea, better since taking bentyl and elavil, colonoscopy unremarkable, normal pancreatic elastase stool and stool negative for infection, serology for celiac negative. Review of Systems Constitutional: Constitutional: Denies headache(s) and Denies weakness Eyes: Eyes: Denies blurry vision ENT: Reports Normal hearing present, Denies headache(s) and Denies neck pain Cardiovascular: Cardiovascular: Denies chest pain and Denies dyspnea Respiratory: Respiratory: Denies dyspnea Gastrointestinal: Gastrointestinal: Reports no additional gastrointestinal complaints Genitourinary: Genitourinary: Denies dysuria Musculoskeletal: Musculoskeletal: Denies neck pain Integumentary/Breasts: Skin/Breast: Denies dry skin Neurologic: Reports Normal hearing present, Denies headache(s) and Denies weakness Psychiatric: Psychiatric: Denies anxiety Endocrine: Endocrine: Denies change in body appearance Hematologic/Lymphatic: Hematologic/Lymphatic: Denies easy bleeding Allergic/Immunologic: Allergic/Immunologic: Denies urticaria PMFSH Past Medical History Medical History (Updated 11/10/23 @ 11:52 by Jone Kearney MD) Abdominal pain Arthritis of knee, right Diabetes Gallbladder polyp GERD (gastroesophageal reflux disease) Hypertension Right upper quadrant pain Tobacco abuse Surgical History Surgical History History of exploratory laparotomy History of hysterectomy 1989 - partial hysterectomy with vaginal approach. Family History Family History Sibling Hypertension Family history of elevated blood lipids Father Family history of chronic obstructive pulmonary disease, Onset Age: 78 Patient's father is Hypertension Grandparent Diabetes mellitus Other Cancer Social History Social History Smoking packs per day: 0.5 Smoking cigarettes per day: 10.0 Years smoked: 35 Smoking pack-years: 17.50 Smoking status: Current every day smoker Tobacco type: cigarettes Second hand tobacco smoke exposure: Yes Alcohol intake: current Drinks per week: 5 Alcohol use details: Socially Substance use: never Substance use type: does not use Lack of Transportation: No Lack of Food: Never True Current Housing: I Have Housing Concerned About Future Housing: No Difficulty Paying Gas/Electric Bills: No Difficulty Paying for Meds: No Currently Unemployed: No Education: Associate Degree Difficulty w/ Childcare or Family Care: No Living arrangements: with family Occupation/Education: occupation 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 Gender identity (if verbalized by the patient): Female Spiritual care concerns: No Meds Home Medications and Allergies Home Medications Medication Instructions Recorded Confirmed Type lisinopril 30 mg tablet 30 mg PO DAILY #90 tabs 07/13/23 11/10/23 Rx hydrochlorothiazide 12.5 mg capsule See Rx Instructions .Route 09/05/23 11/10/23 Rx .COMPLEX #90 caps pantoprazole 40 mg tablet,delayed See Rx Instructions .Route 09/12/23 11/10/23 Rx release .COMPLEX #90 tabs amitriptyline 25 mg tablet 25 mg PO QHS 1 month #30 tabs 09/21/23 11/10/23 Rx dicyclomine 20 mg tablet See Rx Instructions .Route 10/02/23 11/10/23 Rx .COMPLEX #30 tabs Allergies Allergy/AdvReac Type Severity Reaction Status Date / Time cat dander Allergy Unknown Verified 11/10/23 11:32 Vital Signs Vital Signs - 24 hr 12
[2023-11-10 12:03] VITALS: BP 134/85; PULSE 73; RESP 27; O2SAT 100
[2023-11-10 12:13] VITALS: BP 151/94; PULSE 74; RESP 24; O2SAT 100
[2023-11-10 12:23] VITALS: BP 157/95; PULSE 73; RESP 22; O2SAT 99
== END 2023-11-10 12:31 | disposition home or self-care (01) ==
PROVIDERS: PCP Family Medicine Adolescent Medicine; Visit Provider Internal Medicine Gastroenterology
PROC: 0DJ08ZZ Inspection of Upper Intestinal Tract, Via Natural or Artificial Opening Endoscopic (ICD-10-PCS; CPT 43235; principal; 2023-11-10 13:00)
DX: K31.89 Other diseases of stomach and duodenum (principal); R19.7 Diarrhea, unspecified; I10 Essential (primary) hypertension; E11.9 Type 2 diabetes mellitus without complications; K21.9 Gastro-esophageal reflux disease without esophagitis; F17.210 Nicotine dependence, cigarettes, uncomplicated
CPT/HCPCS: 43239; 88305; J7120

== ENCOUNTER 2023-12-15 12:52 | Outpatient (CLI) | payer OTHER, SELFPAY ==
--- NOTE | 2023-12-15 13:16 | ECG_ITS ---
Measurements Intervals [place] Rate: 80 P: 55 PA: 157 QRS: 11 QRSD: 78 T: 20 QT: 335 QTc: 388 Interpretive Statements SINUS RHYTHM LOW QRS VOLTAGE IN PRECORDIAL LEADS CANNOT RULE OUT SEPTAL INFARCT, AGE INDETERMINATE CONSIDER INFERIOR INFARCT, AGE INDETERMINATE BASELINE ARTIFACT- I, II, AVR, V5-V6 ABNORMAL ECG NO PREVIOUS ECG AVAILABLE FOR COMPARISON Electronically Signed On 12-15-2023 13:39:16 MARKET RESEARCHER by Ollie Sexton D.O.
[2023-12-15 14:15] LABS: INR 0.9; Prothrombin Time 12.9 Seconds (11.1-14.7)
[2023-12-15 14:16] LABS: Partial Thromboplastin Time 29.1 SECONDS (22.3-36.8)
[2023-12-15 14:22] LABS: Alanine Aminotransferase 14 U/L (6-35); Albumin Level 4.5 g/dL (3.5-5.1); Alkaline Phosphatase 71 U/L (38-126); Amylase 95 U/L (30-110); Aspartate Amino Transferase 25 U/L (14-36); Bilirubin,Total 0.6 mg/dL (0.2-1.3); Lipase 133 U/L (23-300)
== END 2023-12-15 12:53 | disposition home or self-care (01) ==
LOC: ANHSURGERY 13:00
PROVIDERS: Anesthesiology; PCP Family Medicine Adolescent Medicine; Visit Provider Surgery
DX: Z01.818 Encounter for other preprocedural examination (principal); K80.50 Calculus of bile duct without cholangitis or cholecystitis without obstruction; N18.4 Chronic kidney disease, stage 4 (severe); I10 Essential (primary) hypertension
CPT/HCPCS: 36415; 80076; 82150; 83690; 85610; 85730; 93005

== ENCOUNTER 2023-12-22 01:22 | Day surgery (SDC) | payer OTHER, SELFPAY ==
[2023-12-14 14:46] VITALS: BMI 27.8
--- NOTE | 2023-12-14 14:50 | PC.NURSE ---
Report to the Outpatient Waiting Room, entrance under the green pavilion located off [facility], at time 11:30 on date 12/22/23. Planned Procedure Time: 1:30. Time changes happen often and if your time is changed the preop area will call you the afternoon before. - You and your visitor will be asked to self-screen and do not enter if you have any COVID symptoms. - A mask is optional within the hospital at this time. Patients may have clear liquids (water, carbonated beverages, clear teas, apple juice) until 3 hours prior to surgery (10:30) with a maximum of 20 ounces. - No food from midnight until time of surgery Take the following medications with a SIP of water the morning of surgery: NONE DO NOT STOP ANY OF YOUR OTHER PRESCRIPTION MEDICATIONS PRIOR TO SURGERY ?EXCEPT THE FOLLOWING Medications to discontinue per physician: VITAMINS/SUPPLEMENTS Date to take last dose: 12/18/23 Please no make-up, nail namibian, hairspray, perfume, deodorant, or body powder the day of surgery. No jewelry (including any body piercings) or valuables the day of surgery, leave them at home. Please take a shower or bath the night before, or the morning of, surgery with an antibacterial soap. Wear comfortable, loose fitting clothing. - Jewelry must be removed prior to entering the operating room. Rings and piercings that are not removed may be cut off. - The hospital will not accept responsibility for valuables. - Please leave all valuables, including medications, at home the day of surgery. If you are going home after surgery, a licensed auto parts delivery driver must drive you home. - NO public transportation without another adult if you receive anesthesia. - We recommend that an adult stay with you for 24 hours following discharge. - We also recommend that you do not drive, make important decision, drink alcoholic beverages, or take any drugs that were not prescribed by your health care provider for at least 24 hours after your discharge time. Follow any additional instructions given to you from your surgeon. If you or anyone in your household have experienced Covid symptoms in the past week, please notify your surgeon or the nurse liaison at the phone number below for possible testing. Telephone instructions given to RADHA NEUMANN and asked if any additional questions and then verbalized understanding. Patient advised to call surgeon office or pre surgery nurse liaison [phone] if any additional questions.
[2023-12-22 11:20] VITALS: BP 150/76; PULSE 97; RESP 18; TEMP 36.9; O2SAT 100
[2023-12-22] MEDS: LACTATED RINGERS 1,000 ML 30 ML IV CONT (11:45)
[2023-12-22 11:48] LABS: Glucose Point of Care 89 mg/dl (65-105)
[2023-12-22] MEDS: ACETAMINOPHEN 500 MG TABLET 1000 MG PO (11:55)
--- NOTE | 2023-12-22 12:18 | WPDHPUPDATE1 ---
History and Physical Update Update Date/Time: 12/22/23 12:18 History and Physical has been reviewed, including an updated exam of the patient. There are NO changes in the patient's condition. Risks, benefits, and alternatives have been discussed and questions answered. Patient agrees to proceed with procedure.
--- NOTE | 2023-12-22 13:01 | SUR.PREOP ---
1250 PT INFORMED OF SURGERY TIME DELAY, DENIES ANY NEEDS
--- NOTE | 2023-12-22 13:35 | SUR.PREOP ---
1330 Rosailnd MALHOTRA INFORMED PT OF EXTENDED SURGERY TIME DELAY DUE TO AN EMERGENCY. PT DENIES ANY NEEDS.
--- NOTE | 2023-12-22 14:06 | WPDANESEPPF ---
Anes - Initial Pre Proc Eval Procedure: Operation Date: 12/22/23 13:30 Proposed Procedures p Laparoscopic Cholecystectomy, Possible Open - Ced Amaro MD Date/Time: 12/22/23 14:06 Surgeon: Ced Amaro MD Pre Op Diagnosis: Biliary Colic Patient Data Age: 63 Gender: F Height: 1.68 m Weight: 78.35 kg Last Vital Signs Temp 36.9 C 12/22/23 11:20 Pulse 97 12/22/23 11:20 Resp 18 12/22/23 11:20 BP 150/76 H 12/22/23 11:20 Pulse Ox 100 12/22/23 11:20 O2 Del Method Room Air 12/22/23 11:20 Allergies Allergy/AdvReac Type Severity Reaction Status Date / Time cat dander Allergy Unknown Verified 12/22/23 11:37 Home Medications Medication Instructions Recorded Confirmed Type lisinopril 30 mg tablet 30 mg PO DAILY #90 tabs 07/13/23 12/22/23 Rx hydrochlorothiazide 12.5 mg capsule See Rx Instructions .Route 09/05/23 12/22/23 Rx .COMPLEX #90 caps pantoprazole 40 mg tablet,delayed See Rx Instructions .Route 09/12/23 12/22/23 Rx release .COMPLEX #90 tabs dicyclomine 20 mg tablet See Rx Instructions .Route 10/02/23 12/22/23 Rx .COMPLEX #30 tabs amitriptyline 25 mg tablet 25 mg PO QHS 1 month #30 tabs 12/01/23 12/22/23 Rx cholecalciferol (vitamin D3) 25 25 mcg PO DAILY 12/14/23 12/22/23 History mcg (1,000 unit) tablet (Vitamin D3) cyanocobalamin (vitamin B-12) 100 100 mcg PO DAILY 12/14/23 12/22/23 History mcg tablet Laboratory Tests 12/22/23 11:45 POC Capillary Glucose 89 mg/dl (65-105) Patient hx anesthesia problems: none Family hx anesthesia problems: none Results Review: All pre-operative results and documents have been reviewed as part of the pre-operative evaluation. [facility] Past Medical History Medical History Abdominal pain Arthritis of knee, right Diabetes Gallbladder polyp GERD (gastroesophageal reflux disease) Hypertension Right upper quadrant pain Tobacco abuse Surgical History Surgical History History of exploratory laparotomy History of hysterectomy 1989 - partial hysterectomy with vaginal approach. Family History Family History Sibling Hypertension Family history of elevated blood lipids Father Family history of chronic obstructive pulmonary disease, Onset Age: 78 Patient's father is Hypertension Grandparent Diabetes mellitus Other Cancer Social History Social History Smoking packs per day: 0.5 Smoking cigarettes per day: 10.0 Years smoked: 40 Smoking pack-years: 20.00 Smoking status: Current every day smoker Tobacco type: cigarettes Second hand tobacco smoke exposure: Yes Alcohol intake: current Drinks per week: 5 Alcohol use details: Socially Substance use: never Substance use type: does not use Do You Feel Safe in your Home?: Yes Lack of Transportation: No Lack of Food: Never True Current Housing: I Have Housing Concerned About Future Housing: No Difficulty Paying Gas/Electric Bills: No Difficulty Paying for Meds: No Currently Unemployed: No Education: Associate Degree Difficulty w/ Childcare or Family Care: No Living arrangements: with family Additional living arrangements comments: SON Occupation/Education: occupation Additional occupation/education comments: [employer] Gender identity (if verbalized by the patient): Female Spiritual care concerns: No Anes - Eval Final PreProcedure Day of Procedure 12/22/23 14:06 Patient weight: overweight Heart: regular rate and rhythm Lungs: decreased breath sounds Airway: Mallampati scale class II Neurological: alert and oriented Last oral intake: >/= 8 hours ASA classification: III Emergent: no Anesthetic plan: proceed Anesthesia
[2023-12-22] MEDS: ceFAZolin 2 GM/D5W 50 ML 2 GM/50 ML BAG IVPB (15:01)
[2023-12-22] MEDS: LIDO 1%/EPINEPHRINE 1:100,000 50 ML VIAL 30 ML INFILTRATE (15:39)
--- NOTE | 2023-12-22 15:48 | PM.OP ---
Procedure Note - Brief Procedure Note - Brief Date of procedure: 12/22/23 Biliary Colic, gallbladder polyps Post-op diagnosis: Same Procedure performed: Laparoscopic cholecystectomy Surgeon: Ced Amaro MD Anesthesia: GETA Implants: None Estimated blood loss (mL): 10 Drains: No Packing: No Pathology: Yes (Gallbladder to pathology) Complications: No immediate complications Condition: Stable Disposition: PACU
[2023-12-22 15:55] VITALS: BP 148/83; PULSE 100; RESP 18; TEMP 36.1; O2SAT 100
[2023-12-22 16:10] VITALS: BP 151/75; PULSE 92; RESP 21; O2SAT 100
[2023-12-22] MEDS: fentaNYL CITRATE INJ (*CRX) 100 MCG/2 ML VIAL 25 MCG IV PUSH ×2 (16:14→16:19)
[2023-12-22 16:25] VITALS: BP 130/70; PULSE 96; RESP 21; O2SAT 92
[2023-12-22 16:30] VITALS: BP 160/78; PULSE 94; RESP 16
[2023-12-22] MEDS: oxyCODONE HCL (*CRX) 5 MG TAB IR PO (16:53)
[2023-12-22 17:14] VITALS: BP 151/65; PULSE 82; RESP 16
--- NOTE | 2023-12-23 14:10 | W.PM.PROC2 ---
Procedure Note - Detailed Date of Procedure 12/23/23 Pre-op Diagnosis Biliary Colic, Gallbladder polyps Post-op Diagnosis Same Procedure Performed Laparoscopic cholecystectomy Surgeon Ced Amaro MD Anesthesia General Indications patient is a 63-year-old female who has had fairly frequent right upper quadrant abdominal pain associated with eating. Abdominal ultrasound showed only some possible small gallbladder polyps. No gallstones were seen. A HIDA scan then performed showing a high ejection fraction gallbladder on 83%. The pain is situated right over the area the gallbladder and is closely associated with eating and the patient has bloating as well. Given the location of the pain and back to the pain is associated with eating she has elected to proceed with laparoscopic cholecystectomy. Findings The gallbladder appeared relatively normal. There was no evidence of acute or chronic inflammation. There were no adhesions to the gallbladder. No gallbladder stones were palpated. Description of Procedure After informed consent was obtained patient brought to the operating room she was placed supine position and general endotracheal anesthesia was administered. The abdomen was then prepped and draped usual sterile fashion. Time-out was then performed correctly identifying the patient as well as procedure to be performed. She was given some perioperative IV antibiotics. The abdomen was entered the left upper quadrant utilizing a 5mm Optiview port. Once inside the abdomen insufflated to adequate pneumoperitoneum of 15mmHg of CO2. There were no adhesions around the umbilical region so I then placed a 5mm periumbilical trocar port and then a 10mm epigastric trocar port and 2 right lateral subcostal 5mm trocar ports. The gallbladder is visualized it was mildly distended. There is no thickening of the gallbladder wall. There were no adhesions to the gallbladder. I was able to hold the gallbladder at the dome and elevated the gallbladder over the right have liver towards right shoulder. Second grasper used the gallbladder at the infundibulum. I then proceeded to strip away the visceral peritoneum along the infundibular gallbladder identified the cystic duct. The cystic duct was dissected out circumferentially. Cystic artery identified dissected out circumferentially as well. Posterior wall the gallbladder at the infundibulum was dissected free of the liver into the critical view was obtained. I then placed 2 clips proximally cystic duct and 2 clips distally high on infundibular gallbladder. Cystic duct was then divided Endo Arun. In a similar fashion cystic artery was clipped and divided as well. The gallbladder was resected off the liver electrocautery. It was freed from the liver is placed into an Endo-Catch bag and brought out through the epigastric port site. The gallbladder and contents were sent to pathology for examination. I then irrigated out the right upper quadrant the abdomen gallbladder fossa copious sterile saline solution. Hemostasis was good there is no was a bile leak. I aspirated the fluid from the right lower quadrant the abdomen from the pelvis. I removed all the trocar ports under visualization all port sites appeared hemostatic. Allowed the abdomen decompressed. I then irrigated all the port sites sterile saline solution hemostasis was good. I then closed the 10mm epigastric trocar port fascial defect utilizing 0 Vicryl suture at the fascial level. Skin edges were then approximated utilizing a running subcuticular 4 Monocryl suture. The incisions were then cleaned the skin glue sterile dressings were applied. The patient tolerated the procedure well no complications. All sponges, needles, and instrument counts were correct at the end procedure. EBL was __10_cc. The patient was awakened and taken to recovery in stable and satisfactory condition. Implants None Estimated Blood Loss 10 Drains No Packing No Pat
== END 2023-12-22 17:30 | disposition home or self-care (01) ==
PROVIDERS: PCP Family Medicine Adolescent Medicine; Visit Provider Surgery
PROC: 0FT44ZZ Resection of Gallbladder, Percutaneous Endoscopic Approach (ICD-10-PCS; CPT 47562; principal; 2023-12-22 13:30)
DX: K81.1 Chronic cholecystitis (principal); K21.9 Gastro-esophageal reflux disease without esophagitis; I10 Essential (primary) hypertension; E11.9 Type 2 diabetes mellitus without complications; F17.210 Nicotine dependence, cigarettes, uncomplicated
CPT/HCPCS: 47562; 36415; 80076; 82150; 82948; 83690; 85610; 85730; 88304; 93005; A9270; C1713; J0690; J1170; J2250; J3010; J7120

== ENCOUNTER 2024-03-18 12:58 | Outpatient (CLI) | payer MEDICAID, SELFPAY ==
[2024-03-18 13:36] LABS: Albumin Level 4.5 g/dL (3.5-5.1); Anion Gap 6 mmol/L (4-12); Blood Urea Nitrogen 40 mg/dL (7-17); Calcium 9.4 mg/dL (8.4-10.2); Carbon Dioxide 21 mmol/L (22-30); Chloride 112 mmol/L (98-107); Estimated Glomerular Filt Rate 25; Glucose 115 mg/dL (65-110); Phosphorus 4.3 mg/dL (2.5-4.5); Potassium 4.7 mmol/L (3.4-5.0); Sodium 139 mmol/L (137-145)
[2024-03-18 13:37] LABS: Creatinine Urine 276.9 mg/dL; Total Protein Urine Random 6 mg/dL; Ur Ttl Prot Creatinine Ratio 0.02 mg/mg (0-0.20)
[2024-03-18 13:48] LABS: Parathyroid Intact 178.4 pg/mL (7.5-53.5)
[2024-03-18 14:48] LABS: Vitamin D 25 Hydroxy 41.5 ng/mL
== END 2024-03-18 12:59 | disposition home or self-care (01) ==
LOC: ANHLAB 13:01
PROVIDERS: PCP Family Medicine Adolescent Medicine; Visit Provider Internal Medicine Nephrology
DX: E11.22 Type 2 diabetes mellitus with diabetic chronic kidney disease (principal); I12.9 Hypertensive chronic kidney disease with stage 1 through stage 4 chronic kidney disease, or unspecified chronic kidney disease; N18.4 Chronic kidney disease, stage 4 (severe); E55.9 Vitamin D deficiency, unspecified; N25.81 Secondary hyperparathyroidism of renal origin
CPT/HCPCS: 36415; 80069; 82306; 82570; 83970; 84156

== ENCOUNTER 2024-07-23 11:38 | Outpatient (CLI) | payer OTHER, SELFPAY ==
[2024-07-23 12:20] LABS: Albumin Level 4.5 g/dL (3.5-5.1); Anion Gap 10 mmol/L (4-12); Blood Urea Nitrogen 38 mg/dL (7-17); Calcium 9.4 mg/dL (8.4-10.2); Carbon Dioxide 20 mmol/L (22-30); Chloride 103 mmol/L (98-107); Estimated Glomerular Filt Rate 22; Glucose 100 mg/dL (65-110); Phosphorus 4.2 mg/dL (2.5-4.5); Potassium 4.6 mmol/L (3.4-5.0); Sodium 133 mmol/L (137-145)
[2024-07-23 12:32] LABS: Parathyroid Intact 63.1 pg/mL (14.5-75.2)
[2024-07-23 12:41] LABS: Creatinine Urine 126.9 mg/dL; Total Protein Urine Random 10 mg/dL; Ur Ttl Prot Creatinine Ratio 0.08 mg/mg (0-0.20)
== END 2024-07-23 11:39 | disposition home or self-care (01) ==
PROVIDERS: Nurse Practitioner Family; PCP Family Medicine Adolescent Medicine; Visit Provider Internal Medicine Nephrology
DX: E11.22 Type 2 diabetes mellitus with diabetic chronic kidney disease (principal); I12.9 Hypertensive chronic kidney disease with stage 1 through stage 4 chronic kidney disease, or unspecified chronic kidney disease; N18.4 Chronic kidney disease, stage 4 (severe); N25.81 Secondary hyperparathyroidism of renal origin; G25.0 Essential tremor
CPT/HCPCS: 36415; 80069; 82570; 83970; 84156; 84443

== ENCOUNTER 2024-08-13 14:38 | Outpatient (CLI) | payer OTHER, SELFPAY ==
--- NOTE | ~2024-08-13 | MM_ITS ---
EXAMINATION: MM screening linda BI w roshan HISTORY: Screening TECHNIQUE: Craniocaudal and mediolateral oblique 3-D tomosynthesis images were obtained and synthetic 2-D images were generated. CAD analysis was submitted and interpreted. COMPARISON: Comparison to multiple prior studies sequentially, with oldest reviewed study dated 04/2017. BREAST PARENCHYMAL COMPOSITION: Not dense: There are scattered areas of fibroglandular density. FINDINGS: There is focal asymmetry in the periareolar location of the right breast on CC view. There are developing left breast calcifications in the outer aspect of the left breast. IMPRESSION: 1. Developing right breast asymmetry and focal left breast calcifications. 2. Additional mammographic views and possible breast ultrasound are recommended. BI-RADS Category 0: Incomplete: Needs additional imaging evaluation. Reviewed, dictated and finalized at location B. IMPRESSION: 1. Developing right breast asymmetry and focal left breast calcifications. 2. Additional mammographic views and possible breast ultrasound are recommended . BI-RADS Category 0: Incomplete: Needs additional imaging evaluation.
== END 2024-08-13 14:39 | disposition home or self-care (01) ==
PROVIDERS: PCP Family Medicine Adolescent Medicine; Visit Provider Obstetrics & Gynecology Gynecology
DX: N64.89 Other specified disorders of breast (principal); R92.1 Mammographic calcification found on diagnostic imaging of breast; Z12.31 Encounter for screening mammogram for malignant neoplasm of breast
CPT/HCPCS: 77063; 77067

== ENCOUNTER 2024-09-06 12:16 | Outpatient (CLI) | payer OTHER, SELFPAY ==
--- NOTE | ~2024-09-06 | MMUS_ITS ---
EXAMINATION: MM diagnostic linda BI w roshan, US breast RT complete HISTORY: Follow-up right breast asymmetry and left breast calcifications. TECHNIQUE: Additional 3-D tomosynthesis images of the breasts were performed and synthetic 2-D images were generated. CAD analysis was submitted and interpreted. High resolution Limited right breast ult rasound was performed. COMPARISON: Comparison to multiple prior studies sequentially, with oldest reviewed study dated 08/20. BREAST PARENCHYMAL COMPOSITION: Not dense: There are scattered areas of fibroglandular density.. FINDINGS: MAMMOGRAPHIC FINDINGS: Focal asymmetry in the subareolar location of the right breast compresses, likely superimposed fibrog landular tissue. No discrete mass or architectural distortion. Left breast calcifications clustered i n the lower outer quadrant of the left breast, middle third are likely benign. ULTRASOUND: Complete US of all 4 quadrants of the right breast/s and retroareolar region was reviewed. Normal het erogeneous echotexture without focal solid or cystic mass. IMPRESSION: 1. No evidence for malignancy in the right breast. Probable benign left breast calcifications. 2. Recommend 6 month follow-up diagnostic left mammogram BI-RADS category 3, probably benign findings. Reviewed, dictated and finalized at location B. IMPRESSION: 1. No evidence for malignancy in the right breast. Probable benign left breast calcifications. 2. Recommend 6 month follow-up diagnostic left mammogram BI-RADS category 3, probably benign findings.
== END 2024-09-06 12:17 | disposition home or self-care (01) ==
PROVIDERS: PCP Family Medicine Adolescent Medicine; Visit Provider Nurse Practitioner Women's Health
DX: R92.8 Other abnormal and inconclusive findings on diagnostic imaging of breast (principal)
CPT/HCPCS: 76641; 77062; 77066; G0279

== ENCOUNTER 2024-11-15 13:51 | Outpatient (CLI) | payer OTHER, SELFPAY ==
[2024-11-15 14:31] LABS: Albumin Level 4.4 g/dL (3.5-5.1); Anion Gap 5 mmol/L (4-12); Blood Urea Nitrogen 44 mg/dL (7-17); Calcium 9.4 mg/dL (8.4-10.2); Carbon Dioxide 22 mmol/L (22-30); Chloride 111 mmol/L (98-107); Estimated Glomerular Filt Rate 25; Glucose 103 mg/dL (65-110); Phosphorus 4.5 mg/dL (2.5-4.5); Potassium 4.7 mmol/L (3.4-5.0); Sodium 138 mmol/L (137-145)
[2024-11-15 14:40] LABS: Creatinine Urine 161.7 mg/dL; Total Protein Urine Random 6 mg/dL; Ur Ttl Prot Creatinine Ratio 0.04 mg/mg (0-0.20)
[2024-11-15 14:44] LABS: Parathyroid Intact 75.6 pg/mL (14.5-75.2)
[2024-11-15 14:55] LABS: Vitamin D 25 Hydroxy 43.8 ng/mL
== END 2024-11-15 13:52 | disposition home or self-care (01) ==
LOC: ANHLAB 13:52
PROVIDERS: PCP Family Medicine Adolescent Medicine; Visit Provider Internal Medicine Nephrology
DX: I12.9 Hypertensive chronic kidney disease with stage 1 through stage 4 chronic kidney disease, or unspecified chronic kidney disease (principal); N18.4 Chronic kidney disease, stage 4 (severe); N25.81 Secondary hyperparathyroidism of renal origin; E55.9 Vitamin D deficiency, unspecified
CPT/HCPCS: 36415; 80069; 82306; 82570; 83970; 84156

== ENCOUNTER 2025-02-10 12:38 | Outpatient (CLI) | payer MEDICARE, SELFPAY ==
--- NOTE | ~2025-02-10 | MM_ITS ---
EXAMINATION: MM diagnostic linda LT w roshan HISTORY: 63-year-old woman presents for six-month follow-up diagnostic left breast mammography for li nikki benign calcifications in the lower outer quadrant of the left breast seen initially on screening mammogram dated 08/13/2024. TECHNIQUE: Magnification views of the lower outer quadrant of the left breast were performed. CC, MLO and true lateral views of the left breast were also performed. COMPARISON: 09/06/2024 and dating back to 12/02/2021 BREAST PARENCHYMAL COMPOSITION: Not Dense. There are scattered areas of fibroglandular density. FINDINGS: MAMMOGRAPHIC FINDINGS: The calcifications of prior mammographic concern are secretory in origin for which no further follow- up is needed. IMPRESSION: No mammographic evidence of malignancy. Resumption of yearly screening is recommended. BI-RADS Category 2: Benign finding(s). Reviewed, dictated and finalized at location A.
--- OUTSIDE RECORDS SUMMARY | 2025-02-10 14:15 | XMS_ITS | Clinical Summary ---
Author Organization [facility] Address [address] [address] Phone Care Team Providers Care R[employer] Custodian Name Role Phone Kevin Copeland MD Primary Care Provider + Allergies No known active allergies Medications No known medications Active Problems No known active problems Social History Tobacco Use Types Packs/Day Years Used Date Smoking Tobacco: Never Assessed Comments Unknown Sex and Gender Information Value Date Recorded Sex Assigned at Not on file Legal Sex Female 7:11 PM CDT Gender Identity Not on file Sexual Orientation Not on file Plan of Treatment Health Maintenance Due Date Last Done Comments Hepatitis C Virus (HCV) Screening 1960 TdaP Immunization 1960 Pap Smear 1981 Cervical Cancer Screening (CCS) 1990 HPV/Cotest 1990 Cologuard 2010 Immunochemical Fecal Occult Blood 2010 Mammogram 2010 Pneumococcal Immunization (5 0+ years) (1 of 1 - PCV) 2010 Zoster Immunization (1 of 2) 2010 Colonoscopy 12/06/2023 12/06/2018 Colorectal Cancer Screening 12/06/2023 Influenza Immunization (#1) 2024 SARS-COV-2 Immunization ( - 2023- season) 2024 Respiratory Syncytial Virus (RSV) Immunization (Adult) (1 - 1-dose 75+ series) 2035 12/06/2018 Hepatitis B Immunization Aged Out No longer eligible based on patient's age to complete this topic Meningococcal Immunization (ACWY) Aged Out No longer eligible based on patient's age to complete this topic Pneumococcal Immunization Combined Aged Out No longer eligible based on patient's age to complete this topic Rotavirus Immunization Aged Out No lo nger eligible based on patient's age to complete this topic Procedures Procedure Name Priority Date/Time Associated Diagnosis Comments COLONOSCOPY Routine 12/06/2018 from Last 3 Months or Most Recently Relevant to Health Maintenance Results * COLONOSCOPY (12/06/2018) Black Ballard DO PROCEDURE/MINOR SURGICAL ORDERA BLES Final Result from Last 3 Months or Most Recently Relevant to Health Maintenance Insurance Care Teams [employer] Custodian Relationship Specialty Start Date End Date Kevin Copeland MD [address] [place] [address] PCP - General Family Medicine 10/08/18
== END 2025-02-10 12:39 | disposition home or self-care (01) ==
LOC: ANHIMG 12:39
PROVIDERS: PCP Family Medicine Adolescent Medicine; Visit Provider Obstetrics & Gynecology Gynecology
DX: R92.8 Other abnormal and inconclusive findings on diagnostic imaging of breast (principal)
CPT/HCPCS: 77061; 77065; G0279

== ENCOUNTER 2025-04-21 13:49 | Outpatient (CLI) | payer MEDICARE, SELFPAY ==
--- OUTSIDE RECORDS SUMMARY | 2025-04-21 14:14 | XMS_ITS | Clinical Summary ---
Author Organization [facility] Address [address] [address] Phone Care Team Providers Care Petroleum Sampler Name Role Phone Kevin Copeland MD Primary [...] Relevant to Health Maintenance Insurance Care Teams Petroleum Sampler Relationship Specialty Start Date End Date Kevin Copeland MD PCP - General Family Medicine 10/08/18
[2025-04-21 14:41] LABS: Albumin Level 4.2 g/dL (3.5-5.1); Anion Gap 9 mmol/L (4-12); Blood Urea Nitrogen 35 mg/dL (7-17); Calcium 9.4 mg/dL (8.4-10.2); Carbon Dioxide 21 mmol/L (22-30); Chloride 105 mmol/L (98-107); Estimated Glomerular Filt Rate 30; Glucose 112 mg/dL (65-110); Phosphorus 4.4 mg/dL (2.5-4.5); Potassium 4.5 mmol/L (3.4-5.0); Sodium 135 mmol/L (137-145)
[2025-04-21 15:30] LABS: Creatinine Urine 159.2 mg/dL; Total Protein Urine Random 10 mg/dL; Ur Ttl Prot Creatinine Ratio 0.06 mg/mg (0-0.20)
== END 2025-04-21 13:50 | disposition home or self-care (01) ==
PROVIDERS: PCP Family Medicine Adolescent Medicine; Visit Provider Internal Medicine Nephrology
DX: I12.9 Hypertensive chronic kidney disease with stage 1 through stage 4 chronic kidney disease, or unspecified chronic kidney disease (principal); N18.4 Chronic kidney disease, stage 4 (severe)
CPT/HCPCS: 36415; 80069; 82570; 84156

== ENCOUNTER 2025-07-17 09:48 | Outpatient (CLI) | payer MEDICARE, SELFPAY ==
--- NOTE | ~2025-07-17 | CT_ITS ---
EXAMINATION: CT lung screening DATE: 07/17/2025 10:04 INDICATION: Personal history of nicotine dependence TECHNIQUE: Computed tomography (CT) of the chest was performed without intravenous contrast. The dose-length product was 81.58 mGy-cm. COMPARISON: None FINDINGS: Heart size normal. No significant pleural or pericardial effusion. Status post cholecystectomy. No thoracic lymphadenopathy. Mild perinephric stranding, nonspecific. There are cholecystectomy clips. 2. mm right upper lobe nodule. 2 mm left upper lobe nodule. No endobronchial lesions. No pneumothorax. No focal consolidation. Mild thoracic spondylosis with accentuated kyphosis. No focal lytic or blastic lesions. IMPRESSION: 1. Lung-RADS category 2: Benign appearance or behavior. Continue annual screening with noncontrast low-dose chest CT in 12 months. Reviewed, dictated and finalized at location O. IMPRESSION: 1. Lung-RADS category 2: Benign appearance or behavior. Continue annual screeni ng with noncontrast low-dose chest CT in 12 months.
--- OUTSIDE RECORDS SUMMARY | 2025-07-17 09:56 | XMS_ITS | Clinical Summary ---
Author Organization [facility] Address [address] [address] Phone Care Team Providers Care Training Development Specialist Name Role Phone Kevin Copeland MD Primary [...] Cancer Screening (CCS) 1990 HPV/Cotest 1990 Cologuard 2005 Immunochemical Fecal Occult Blood 2005 Pneumococcal Immunization (5 0+ years) (1 of 1 - PCV) 2010 Zoster Immunization (1 of 2) 2010 Colonoscopy 12/06/2023 12/06/2018 Colorectal Cancer Screening 12/06/2023 SARS-COV-2 Immunization ( - season) 2024 Influenza Immunization (#1) 2025 Respiratory Syncytial Virus (RSV) Immunization (Adult) (1 - 1-dose 75+ series) 2035 Hepatitis B Immunization Aged Out No longer eligible based on patient's age to complete this topic Human Papillomavirus (HPV) Immunization Aged Out No longer eligible b ased on patient's age to complete this topic [...] Most Recently Relevant to Health Maintenance Insurance * Guarantor: Ruth Sauer Account Type Relation to Patient Date of Phone Billing Address Personal/Family Self 1960 [address] Care Teams Training Development Specialist Relationship Specialty Start Date End Date Kevin Copeland MD PCP - General Family Medicine 10/08/18
== END 2025-07-17 09:49 | disposition home or self-care (01) ==
PROVIDERS: PCP Family Medicine Adolescent Medicine; Visit Provider Nurse Practitioner Family
DX: Z12.2 Encounter for screening for malignant neoplasm of respiratory organs (principal); Z87.891 Personal history of nicotine dependence
CPT/HCPCS: 71271

== ENCOUNTER 2025-08-19 11:28 | Outpatient (CLI) | payer MEDICARE, SELFPAY ==
--- OUTSIDE RECORDS SUMMARY | 2025-08-19 11:54 | XMS_ITS | Clinical Summary ---
Author Organization [facility] Address [address] [address] Phone Care Team Providers Care Engine Specialist Name Role Phone Kevin Copeland MD [...] Colorectal Cancer Screening 12/06/2023 Influenza Immunization (#1) 2025 SARS-COV-2 Immunization ( - season) 2025 Respiratory Syncytial Virus (RSV) Immunization (Adult) [...] Phone Billing Address Personal/Family Self 1960 [address] Care Teams Engine Specialist Relationship Specialty Start Date End Date Kevin Copeland MD PCP - General Family Medicine 10/08/18
[2025-08-19 12:20] LABS: Albumin Level 4.0 g/dL (3.5-5.1); Anion Gap 6 mmol/L (4-12); Blood Urea Nitrogen 26 mg/dL (7-17); Calcium 9.5 mg/dL (8.4-10.2); Carbon Dioxide 25 mmol/L (22-30); Chloride 101 mmol/L (98-107); Estimated Glomerular Filt Rate 31; Glucose 88 mg/dL (65-110); Potassium 4.2 mmol/L (3.4-5.0); Sodium 132 mmol/L (137-145)
[2025-08-19 12:22] LABS: Alanine Aminotransferase 20 U/L (6-35); Albumin Level 4.1 g/dL (3.5-5.1); Alkaline Phosphatase 57 U/L (38-126); Anion Gap 7 mmol/L (4-12); Aspartate Amino Transferase 35 U/L (14-36); Bilirubin,Total 0.5 mg/dL (0.2-1.3); Blood Urea Nitrogen 26 mg/dL (7-17); Calcium 9.6 mg/dL (8.4-10.2); Carbon Dioxide 25 mmol/L (22-30); Chloride 102 mmol/L (98-107); Cholesterol 220 mg/dL (0-200); Estimated Glomerular Filt Rate 31; Glucose 88 mg/dL (65-110); HDL Direct 97 mg/dL; Potassium 4.2 mmol/L (3.4-5.0); Sodium 134 mmol/L (137-145); Total Protein 7.1 g/dL (6.3-8.2); Triglycerides 162 mg/dL (<150)
[2025-08-19 12:24] LABS: Total Protein Urine Random 13 mg/dL; Ur Ttl Prot Creatinine Ratio 0.18 mg/mg (0-0.20)
[2025-08-19 12:34] LABS: Parathyroid Intact 21.2 pg/mL (14.5-75.2)
== END 2025-08-19 11:29 | disposition home or self-care (01) ==
PROVIDERS: Internal Medicine Nephrology; PCP Family Medicine Adolescent Medicine; Visit Provider Nurse Practitioner Family
DX: E11.22 Type 2 diabetes mellitus with diabetic chronic kidney disease (principal); I12.9 Hypertensive chronic kidney disease with stage 1 through stage 4 chronic kidney disease, or unspecified chronic kidney disease; N18.4 Chronic kidney disease, stage 4 (severe); K21.9 Gastro-esophageal reflux disease without esophagitis; E55.9 Vitamin D deficiency, unspecified; K58.0 Irritable bowel syndrome with diarrhea; N25.81 Secondary hyperparathyroidism of renal origin; Z11.59 Encounter for screening for other viral diseases
CPT/HCPCS: 36415; 80053; 80061; 80069; 82306; 82570; 83970; 84156; 86803